=== PATIENT | male | born 1965 | race Caucasian/White ===

== ENCOUNTER 2023-01-10 22:51 | Emergency (ER) | payer SELFPAY ==
[~2023-01-10] VITALS: Ht 170.2 cm; Wt 77.1 kg
[2023-01-10] MEDS ORDERED: HYDROCODONE/APAP 10-325 MG TABLET PO ONE (23:30)
[2023-01-10] MEDS ORDERED: ONDANSETRON ODT 4 MG TAB.RAPDIS SL ONE (23:30)
[2023-01-10] MEDS ORDERED: ONDANSETRON ODT 4 MG TAB.RAPDIS ONE (23:36)
[2023-01-10] MEDS ORDERED: HYDROCODONE/APAP 10-325 MG TABLET ONE (23:37)
[2023-01-11] MEDS ORDERED: HYDROCODONE/APAP 10-325 MG TABLET PO ONE (01:00)
[2023-01-11] MEDS ORDERED: HYDROCODONE/APAP 10-325 MG TABLET ONE (01:30)
[2023-01-11] MEDS ORDERED: TRAM50TA2 PO (03:45)
[2023-01-11 06:41] VITALS: BP 130/95; O2SAT 98
== END 2023-01-11 06:20 | disposition home or self-care (01) ==
LOC: ER 23:00
DX: M54.50 Low back pain, unspecified (principal); F17.210 Nicotine dependence, cigarettes, uncomplicated
CPT/HCPCS: 72100; 72131; A4663; Q0162